=== PATIENT | female | born 1980 | race Two or more races ===

== ENCOUNTER 2019-08-20 20:10 | Inpatient (IN) | payer MEDICAID ==
[~2019-08-20] VITALS: Ht 160 cm; Wt 86.2 kg
[2019-08-20 21:03] VITALS: BP 127/76
[2019-08-20] MEDS ORDERED: METOCLOPRAMIDE 10 MG/2 ML INJ VIAL IVP SCH (22:00)
[2019-08-20] MEDS ORDERED: CITRIC ACID/SODIUM CITRATE 30 ML UDC PO SCH (22:00)
[2019-08-20 22:05] LABS: BASOPHILS % (AUTO) 0.4 % (0.0-2.0); EOSINOPHILS # (AUTO) 0.2 K/uL (0-0.4); HEMATOCRIT 40.9 % (36-48); HEMOGLOBIN 13.6 g/dL (12.0-16.0); LYMPHOCYTES # (AUTO) 1.8 K/uL (2.5-16.5); LYMPHOCYTES % (AUTO) 22.4 % (20.5-51.1); MEAN CORPUSCULAR HEMOGLOBIN 31 pg (27-31); MEAN CORPUSCULAR HGB CONC 33 g/dL (33-37); MEAN CORPUSCULAR VOLUME 92.3 fL (80-94); MONOCYTES # (AUTO) 0.9 K/uL (0.8-1.0); MONOCYTES % (AUTO) 11.5 % (1.7-9.3); NEUTROPHILS # (AUTO) 5.1 K/uL (1.8-7.7); NEUTROPHILS % (AUTO) 63.7 % (42.2-75.2); PLATELET COUNT (AUTO) 175 K/uL (140-450); RED BLOOD CELL COUNT(AUTO) 4.44 MIL/uL (4.20-5.40); RED CELL DISTRIBUTION WIDTH 14.1 % (11.6-13.7); WHITE BLOOD COUNT (AUTO) 8.1 K/uL (4.8-10.8)
[2019-08-20 22:10] LABS: APPEARANCE,URINE CLEAR (CLEAR); BILIRUBIN,URINE NEGATIVE (NEGATIVE); BLOOD, URINE 1+ (NEGATIVE); COLOR,URINE YELLOW (YELLOW); LEUKOCYTE ESTERASE ,URINE NEGATIVE (NEGATIVE); NITRITE, URINE NEGATIVE (NEGATIVE); PH,URINE 6.5 (5.0-9.0); UGLUCOSE NEGATIVE (NEGATIVE)
[2019-08-20 22:25] LABS: ALBUMIN 2.4 g/dL (3.4-5.0); ANION GAP 15.1 (8-16); CARBON DIOXIDE 22.7 mmol/L (21-32); CREATININE 0.7 mg/dL (0.6-1.3); POTASSIUM 3.8 mmol/L (3.5-5.1); TOTAL BILIRUBIN 0.2 mg/dL (0.0-1.0)
[2019-08-20] MEDS: LACTATED RINGERS 1,000 ML IV SCH (22:27)
[2019-08-20 22:33] LABS: WBC,URINE 0-5 /HPF (0-5)
[2019-08-20] MEDS ORDERED: METHYLERGONOVINE 0.2 MG/ML AMP ONE (22:44)
[2019-08-20] MEDS ORDERED: OXYTOCIN 10 UNITS/ML VIAL ONE (22:44)
[2019-08-20] MEDS ORDERED: ceFAZolin 1,000 MG VIAL ONE (22:56)
[2019-08-20] MEDS ORDERED: CITRIC ACID/SODIUM CITRATE 30 ML UDC ONE (22:56)
[2019-08-20] MEDS ORDERED: MORPHINE PRES FREE 10 MG/10 ML AMP IV ONE (23:02)
[2019-08-20] MEDS ORDERED: ONDANSETRON 4 MG/2 ML VIAL ONE (23:20)
[2019-08-21] MEDS ORDERED: INFLUENZA VACCINE QUAD 0.5 ML SYR IMVAC PRN (00:15)
[2019-08-21] MEDS ORDERED: PREN-371 PO (00:29)
[2019-08-21] MEDS ORDERED: ONDANSETRON 4 MG/2 ML VIAL IVP PRN ×2 (00:45→00:55)
[2019-08-21] MEDS ORDERED: diphenhydrAMINE 50 MG/ML VIAL IVP PRN ×2 (00:45→00:55)
[2019-08-21] MEDS ORDERED: NALOXONE 0.4 MG/ML VIAL IVP PRN ×3 (00:45→00:55)
[2019-08-21] MEDS ORDERED: HYDROmorphone 1 MG/ML AMP IVP PRN (00:45)
[2019-08-21] MEDS ORDERED: OXYTOCIN 20 UNITS in LACTATED RINGERS 1,000 ML IV SCH (00:53)
[2019-08-21] MEDS ORDERED: KETOROLAC 30 MG/ML VIAL IVP PRN (00:55)
[2019-08-21] MEDS: LACTATED RINGERS 1,000 ML IV SCH (01:05)
[2019-08-21] MEDS ORDERED: OXYTOCIN 20 UNITS/LR PREMIX 1,000 ML IV ONE ×2 (01:20→10:17)
[2019-08-21] MEDS ORDERED: OXYTOCIN 10 UNITS in LACTATED RINGERS 1,000 ML IV SCH (01:23)
[2019-08-21] MEDS ORDERED: METHYLERGONOVINE 0.2 MG/ML AMP IM PRN (01:25)
[2019-08-21] MEDS ORDERED: MEASLES, MUMPS, AND RUBELLA 1 VIAL SQVAC PRN (01:25)
[2019-08-21] MEDS ORDERED: KETOROLAC 30 MG/ML VIAL IM/IVP SCH (06:00)
[2019-08-21] MEDS: BISACODYL 10 MG SUPP RC SCH (09:25)
[2019-08-21 12:51] LABS: BASOPHILS % (AUTO) 0.2 % (0.0-2.0); EOSINOPHILS % (AUTO) 0.2 % (0.0-4.0); HEMATOCRIT 36.8 % (36-48); HEMOGLOBIN 12.3 g/dL (12.0-16.0); LYMPHOCYTES # (AUTO) 1.3 K/uL (2.5-16.5); LYMPHOCYTES % (AUTO) 13.4 % (20.5-51.1); MEAN CORPUSCULAR HEMOGLOBIN 31 pg (27-31); MEAN CORPUSCULAR HGB CONC 33 g/dL (33-37); MEAN CORPUSCULAR VOLUME 91.4 fL (80-94); MONOCYTES # (AUTO) 0.5 K/uL (0.8-1.0); MONOCYTES % (AUTO) 4.6 % (1.7-9.3); NEUTROPHILS # (AUTO) 8.3 K/uL (1.8-7.7); NEUTROPHILS % (AUTO) 81.6 % (42.2-75.2); PLATELET COUNT (AUTO) 145 K/uL (140-450); RED BLOOD CELL COUNT(AUTO) 4.02 MIL/uL (4.20-5.40); RED CELL DISTRIBUTION WIDTH 14.4 % (11.6-13.7); WHITE BLOOD COUNT (AUTO) 10.1 K/uL (4.8-10.8)
--- NOTE | 2019-08-21 16:04 | NUR ---
Patient has been screened and categorized as Low Nutrition Risk. Pt will be seen within 7days of admission date. 08/27/19
[2019-08-21] MEDS ORDERED: CARBOPROST 250 MCG/ML AMP IM PRN (18:45)
[2019-08-21] MEDS: SIMETHICONE 80 MG TAB.CHEW PO PRN (20:08)
[2019-08-22] MEDS ORDERED: IBUPROFEN 800 MG TAB ONE (06:36)
[2019-08-22] MEDS: IBUPROFEN 800 MG TAB PO PRN ×2 (06:39→17:18)
[2019-08-22] MEDS: SIMETHICONE 80 MG TAB.CHEW PO PRN ×3 (08:43→23:00)
[2019-08-22] MEDS: BISACODYL 10 MG SUPP RC SCH (08:44)
[2019-08-22] MEDS: oxyCODONE/APAP 5/325 MG 1 TAB TAB PO PRN ×2 (08:49→18:37)
[2019-08-23] MEDS: SIMETHICONE 80 MG TAB.CHEW PO PRN ×3 (06:19→17:20)
[2019-08-23] MEDS: IBUPROFEN 800 MG TAB PO PRN ×3 (09:07→17:20)
[2019-08-23] MEDS: BISACODYL 10 MG SUPP RC SCH (09:07)
[2019-08-24] MEDS: BISACODYL 10 MG SUPP RC SCH (09:00)
[2019-08-24] MEDS: IBUPROFEN 800 MG TAB PO PRN (09:03)
[2019-08-24] MEDS: SIMETHICONE 80 MG TAB.CHEW PO PRN ×2 (09:10→13:07)
== END 2019-08-24 15:45 | disposition home or self-care (01) | DRG 540 ==
LOC: OBSVTOIN 20:10 → MLD 20:10 → MFCC 08-21 03:02
PROVIDERS: ADMIT Obstetrics & Gynecology; ATTEND Obstetrics & Gynecology
PROC: 10D00Z1 Extraction of Products of Conception, Low, Open Approach (ICD-10-PCS; principal; 2019-08-20 23:00)
PROC: 3E0234Z Introduction of Serum, Toxoid and Vaccine into Muscle, Percutaneous Approach (ICD-10-PCS; 2019-08-21)
PROC: 3E0134Z Introduction of Serum, Toxoid and Vaccine into Subcutaneous Tissue, Percutaneous Approach (ICD-10-PCS; 2019-08-24)
DX: O34.211 Maternal care for low transverse scar from previous cesarean delivery (principal); Z23 Encounter for immunization; Z37.0 Single live birth; Z3A.38 38 weeks gestation of pregnancy
CPT/HCPCS: 36415; 80053; 81001; 85025; 86592; 86762; 86886; 86900; 86901; 87086; 87340; 90707; 90715; J0690; J2210; J2270; J2405; J2590; J7060; J7120

== ENCOUNTER 2020-10-23 05:09 | Inpatient (IN) | payer MEDICAID, SELFPAY ==
[~2020-10-23] VITALS: Ht 167.6 cm; Wt 99.8 kg
[~2020-10-23 05:09] MED LIST: PREN-371 PO
[2020-10-23] MEDS ORDERED: METHYLERGONOVINE 0.2 MG/ML AMP IM PRN (05:55)
[2020-10-23] MEDS ORDERED: LACTATED RINGERS 1,000 ML IV SCH (05:55)
[2020-10-23] MEDS ORDERED: CITRIC ACID/SODIUM CITRATE 30 ML UDC PO SCH (05:55)
[2020-10-23 06:00] VITALS: BP 119/60
[2020-10-23 06:32] LABS: BASOPHILS % (AUTO) 0.4 % (0.0-2.0); EOSINOPHILS # (AUTO) 0.1 K/uL (0-0.4); EOSINOPHILS % (AUTO) 0.9 % (0.0-4.0); HEMATOCRIT 41.3 % (36-48); HEMOGLOBIN 13.8 g/dL (12.0-16.0); LYMPHOCYTES # (AUTO) 1.6 K/uL (2.5-16.5); LYMPHOCYTES % (AUTO) 21.3 % (20.5-51.1); MEAN CORPUSCULAR HEMOGLOBIN 31 pg (27-31); MEAN CORPUSCULAR HGB CONC 34 g/dL (33-37); MEAN CORPUSCULAR VOLUME 91.3 fL (80-94); MONOCYTES # (AUTO) 0.9 K/uL (0.8-1.0); MONOCYTES % (AUTO) 11.7 % (1.7-9.3); NEUTROPHILS % (AUTO) 65.7 % (42.2-75.2); PLATELET COUNT (AUTO) 191 K/uL (140-450); RED BLOOD CELL COUNT(AUTO) 4.52 MIL/uL (4.20-5.40); RED CELL DISTRIBUTION WIDTH 14.2 % (11.6-13.7); WHITE BLOOD COUNT (AUTO) 7.6 K/uL (4.8-10.8)
[2020-10-23] MEDS ORDERED: ceFAZolin 1,000 MG VIAL ONE (06:48)
[2020-10-23 06:49] LABS: ALBUMIN 2.6 g/dL (3.4-5.0); ANION GAP 16.2 (8-16); CARBON DIOXIDE 19.7 mmol/L (21-32); CREATININE 0.7 mg/dL (0.6-1.3); POTASSIUM 3.9 mmol/L (3.5-5.1); TOTAL BILIRUBIN 0.3 mg/dL (0.0-1.0)
[2020-10-23 06:52] LABS: BILIRUBIN,URINE NEGATIVE (NEGATIVE); BLOOD, URINE NEGATIVE (NEGATIVE); COLOR,URINE YELLOW (YELLOW); LEUKOCYTE ESTERASE ,URINE TRACE (NEGATIVE); NITRITE, URINE NEGATIVE (NEGATIVE); UGLUCOSE NEGATIVE (NEGATIVE)
[2020-10-23 06:57] LABS: APPEARANCE,URINE SLIGHTLY HAZY (CLEAR); RBC,URINE 0-5 /HPF (0-5); WBC,URINE 0-5 /HPF (0-5)
[2020-10-23] MEDS ORDERED: MORPHINE PRES FREE 10 MG/10 ML AMP IV ONE ×2 (07:32→07:47)
[2020-10-23] MEDS ORDERED: fentaNYL citrate 0.05 MG/ML VIAL ONE ×2 (07:33→07:47)
[2020-10-23] MEDS ORDERED: DEXAMETHASONE 4 MG/ML VIAL ONE (07:47)
[2020-10-23] MEDS ORDERED: LIDOCAINE 2% 100 MG/5 ML SYR IVP ONE (07:47)
[2020-10-23] MEDS ORDERED: ONDANSETRON 4 MG/2 ML VIAL ONE (07:47)
[2020-10-23] MEDS ORDERED: METOCLOPRAMIDE 10 MG/2 ML INJ VIAL ONE (07:47)
[2020-10-23] MEDS ORDERED: PHENYLEPHRINE 10 MG/ML VIAL ONE (07:47)
[2020-10-23] MEDS ORDERED: diphenhydrAMINE 50 MG/ML VIAL ONE (08:20)
[2020-10-23] MEDS ORDERED: OXYTOCIN 20 UNITS/LR PREMIX 1,000 ML IV ONE (08:20)
[2020-10-23] MEDS ORDERED: MEPERIDINE 25 MG/ML SYR IVP PRN (08:35)
[2020-10-23] MEDS ORDERED: diphenhydrAMINE 50 MG/ML VIAL IVP PRN ×2 (08:35)
[2020-10-23] MEDS ORDERED: ONDANSETRON 4 MG/2 ML VIAL IVP PRN ×2 (08:35)
[2020-10-23] MEDS ORDERED: NALOXONE 0.4 MG/ML VIAL IVP PRN ×2 (08:35)
[2020-10-23] MEDS: OXYTOCIN 20 UNITS in LACTATED RINGERS 1,000 ML IV SCH ×2 (08:50→17:27)
--- NOTE | 2020-10-23 09:26 | NUR ---
PATIENT HAS BEEN SCREENED AND CATEGORIZED LOW NUTRITION RISK. PATIENT WILL BE SEEN WITHIN 7 DAYS OF ADMISSION. 10/29/[address]
[2020-10-23] MEDS ORDERED: LEVOTHYROXINE 0.05 MG TAB PO SCH (09:35)
[2020-10-23] MEDS: KETOROLAC 30 MG/ML VIAL IM/IVP SCH ×2 (12:51→18:29)
[2020-10-24] MEDS: KETOROLAC 30 MG/ML VIAL IM/IVP SCH ×2 (00:17→07:16)
[2020-10-24] MEDS ORDERED: OXYTOCIN 20 UNITS/LR PREMIX 1,000 ML IV ONE (01:18)
[2020-10-24] MEDS: OXYTOCIN 20 UNITS in LACTATED RINGERS 1,000 ML IV SCH (01:25)
[2020-10-24 05:53] LABS: BASOPHILS % (AUTO) 0.2 % (0.0-2.0); EOSINOPHILS # (AUTO) 0.1 K/uL (0-0.4); EOSINOPHILS % (AUTO) 0.7 % (0.0-4.0); HEMATOCRIT 36.5 % (36-48); HEMOGLOBIN 12.1 g/dL (12.0-16.0); LYMPHOCYTES # (AUTO) 1.7 K/uL (2.5-16.5); LYMPHOCYTES % (AUTO) 17.1 % (20.5-51.1); MEAN CORPUSCULAR HEMOGLOBIN 31 pg (27-31); MEAN CORPUSCULAR HGB CONC 33 g/dL (33-37); MEAN CORPUSCULAR VOLUME 92.6 fL (80-94); MONOCYTES % (AUTO) 10.4 % (1.7-9.3); NEUTROPHILS % (AUTO) 71.6 % (42.2-75.2); PLATELET COUNT (AUTO) 157 K/uL (140-450); RED BLOOD CELL COUNT(AUTO) 3.94 MIL/uL (4.20-5.40); RED CELL DISTRIBUTION WIDTH 13.9 % (11.6-13.7); WHITE BLOOD COUNT (AUTO) 9.8 K/uL (4.8-10.8)
[2020-10-24] MEDS: LEVOTHYROXINE 0.05 MG TAB PO SCH (06:31)
[2020-10-24] MEDS ORDERED: oxyCODONE/APAP 5/325 MG 1 TAB TAB PO PRN (07:10)
[2020-10-24] MEDS ORDERED: IBUPROFEN 600 MG TAB PO PRN (07:10)
[2020-10-24] MEDS ORDERED: CAMERA MC ONE (21:32)
[2020-10-25] MEDS: LEVOTHYROXINE 0.05 MG TAB PO SCH (07:20)
== END 2020-10-25 15:55 | disposition home or self-care (01) | DRG 540 ==
LOC: MLD 05:30 → MFCC 10:35
PROVIDERS: ADMIT Obstetrics & Gynecology; ATTEND Obstetrics & Gynecology
PROC: 0UB70ZZ Excision of Bilateral Fallopian Tubes, Open Approach (ICD-10-PCS; 2020-10-23)
PROC: 10D00Z1 Extraction of Products of Conception, Low, Open Approach (ICD-10-PCS; 2020-10-23)
PROC: 3E0234Z Introduction of Serum, Toxoid and Vaccine into Muscle, Percutaneous Approach (ICD-10-PCS; principal; 2020-10-24)
DX: O34.211 Maternal care for low transverse scar from previous cesarean delivery (principal); E03.9 Hypothyroidism, unspecified; F32.9 Major depressive disorder, single episode, unspecified; E55.9 Vitamin D deficiency, unspecified; O99.284 Endocrine, nutritional and metabolic diseases complicating childbirth; O99.344 Other mental disorders complicating childbirth; Z37.0 Single live birth; Z23 Encounter for immunization; Z3A.39 39 weeks gestation of pregnancy; Z20.822 Contact with and (suspected) exposure to COVID-19; Z30.2 Encounter for sterilization
CPT/HCPCS: 36415; 80053; 81001; 85025; 86592; 86886; 86900; 86901; 87081; 88302; 90715; J0690; J1100; J1200; J1885; J2001; J2270; J2370; J2405; J2590; J2765; J3010; J7120